=== PATIENT | male | born 1965 | race Caucasian/White ===

== ENCOUNTER 2023-10-20 17:16 | Emergency (ER) | payer OTHER, SELFPAY ==
[2023-10-20 17:21] VITALS: BP 131/81
[2023-10-20 18:06] LABS: % Basophils 0.4 % (0-2); % Eosinophils 0.4 % (0-6); % Immature Granulocytes 0.3 % (0-0.5); % Lymphocytes 16.8 % (20.5-51.1); % Monocytes 8.4 % (1.7-9.3); % Neutrophils 73.7 % (42.2-75.2); Absolute Lymphocytes 1.7 10^3/uL (1.2-3.4); Absolute Monocytes 0.9 10^3/uL (0.1-0.6); Absolute Neutrophils 7.4 10^3/uL (1.4-6.5); Hematocrit 37.5 % (39.0-52.0); Hemoglobin 13.9 g/dL (13.0-18.0); Mean Corp Hgb Conc. 37.1 g/dL (33.0-37.0); Mean Corpuscular Hgb 30.3 pg (27.0-31.0); Mean Corpuscular Volume 81.9 fL (80.0-94.0); Mean Platelet Volume 10.1 fL (7.4-10.4); Nucleated Red Blood Cells % 0 % (-); Platelet Count 164 10^3/uL (130-400); Red Blood Cell Count 4.58 10^6/uL (4.70-6.10); Red Cell Dist. Width 12.7 % (11.5-14.5); White Blood Cell Count 10.1 10^3/uL (4.8-10.8)
[2023-10-20 18:22] LABS: ALT (SGPT) 71 U/L (0-50); AST (SGOT) 34 U/L (17-59); Alkaline Phosphatase 93 U/L (38-126); Blood Urea Nitrogen 17 mg/dl (9-20); Calcium 9.7 mg/dl (8.4-10.2); Carbon Dioxide 26 mmol/L (22-30); Chloride 103 mmol/L (98-107); Glucose 180 mg/dl (70-99); Potassium 4.3 mmol/L (3.5-5.1); Sodium 134 mmol/L (135-145); Total Bilirubin 0.6 mg/dl (0.2-1.3); Total Protein 6.7 g/dl (6.3-8.2); eGFR > 60.00
[2023-10-20 18:42] LABS: Urine Albumin Trace (Neg - Trace); Urine Bilirubin Negative (Negative); Urine Character Clear (Clear); Urine Color Yellow; Urine Glucose 1+ (Negative); Urine Ketone Trace (Negative); Urine Leukocyte 1+ (Negative); Urine Nitrite Negative (Negative); Urine Occult Blood 1+ (Negative); Urine Specific Gravity 1.015 (<1.030); Urine Urobilinogen Negative (Neg - 1+)
[2023-10-20 19:05] LABS: Urine Bacteria Few (Negative)
[2023-10-20] MEDS: MORPHINE SULFATE 4 MG IV ×2 (19:38→21:39)
[2023-10-20 21:34] VITALS: BP 130/81
--- NOTE | 2023-10-20 23:20 | ED.GENMED ---
History of Present Illness
General
Chief Complaint: Male Genito-Urinary Symptoms
Source: patient and family
Time Seen by Provider: 10/20/23 18:09
Travel History
Have you had any contact with someone who has COVID-19?: No
Do you have any symptoms of coronavirus? Fever > 100 degrees, chills, cough, shortness of breath, sore throat, loss of taste or smell, muscle aches, or headache?: No
History of Present Illness
History of Present Illness:
58-year-old male who presents with right testicular pain and swelling. Patient was seen for hematuria several days ago was put on some antibiotics. He has been on a cephalosporin. He states that over the last 24 hours has developed significant
right testicular pain no real abdominal pain. No trauma.
Past History
Past History
ED Past Medical History: NIDDM
Social History
Tobacco: Non-smoker
Phy Exam
Physical Exam
Physical Exam:
CONSTITUTIONAL Vital signs reviewed, Patient alert and oriented to person, place and time. Well-appearing
HEAD atraumatic, normocephalic.
EYES eyelids normal to inspection, Extraocular muscles intact, Conjunctiva normal, Sclera normal.
NECK normal range of motion, Trachea midline, no jugular venous distention.
RESP no respiratory distress
BACK No obvious deformities
Abdomen soft nontender, slight tenderness noted in the right groin region
penis normal. There is swelling and tenderness noted to the right testicle. There is no cellulitis that is encroaching the perineum to suspect Moshe's gangrene. There is no crepitus.
UPPER EXTREMITY Gross Range of motion normal, gross motor strength normal
LOWER EXTREMITY Gross range of motion normal, Gross motor strength normal
NEURO Speech normal, No focal motor deficits include, [place] coma scale 15, Memory normal, Cranial Nerves intact to screening exam.
SKIN Skin warm, dry, and normal in color.
PSYCHIATRIC Patient oriented to person place and time, Normal affect.
Course
Orders/Labs/Results
Orders:
Orders
10/20/23 18:01
Complete Blood Count/With Diff Urgent
Comprehensive Metabolic Panel Urgent
Urinalysis Reflex To Culture Urgent
Date Specimen was Collected: 10/20/23
Time Specimen was Collected: 17:53
Urine Microscopic Reflex Cult Urgent
Urine Culture Urgent
DEVON Source: U
Specimen Description:
Date Specimen was Collected: 10/20/23
Time Specimen was Collected: 17:53
10/20/23 19:26
Morphine Sulfate 4 mg IV NOW STA
Scrotum US [US Scrotum] Urgent
Comment:
Reason For Exam: R testicular pain
10/20/23 21:35
Morphine Sulfate 4 mg .ROUTE .STK-MED ONE
Morphine Sulfate 4 mg IV NOW STA
10/20/23 23:19
Hydrocodone 5/APAP 325 [[place] 5/325] 2 tablet PO NOW STA
LevoFLOXacin [Levaquin] 500 mg PO NOW STA
Abnormal Lab Results
10/20/23
18:01
RBC 4.58 L 10^6/uL
(4.70-6.10)
Hct 37.5 L %
(39.0-52.0)
MCHC 37.1 H g/dL
(33.0-37.0)
Absolute Neuts (auto) 7.4 H 10^3/uL
(1.4-6.5)
Absolute Monos (auto) 0.9 H 10^3/uL
(0.1-0.6)
Lymphocytes % 16.8 L %
(20.5-51.1)
Sodium 134 L mmol/L
(135-145)
Glucose 180 H mg/dl
(70-99)
ALT 71 H U/L
(0-50)
Urine Ketones Trace A
(Negative)
Ur Occult Blood Reflex 1+ A
(Negative)
Leukocyte Esterase Rfl 1+ A
(Negative)
Urine RBC 3-6 A /HPF
(0-2)
Urine WBC (Reflex) 11-15 A /HPF
(0-5)
Urine Bacteria (Reflex) Few A
(Negative)
Urine Glucose 1+ A
(Negative)
10/20/23 18:01
10/20/23 18:01
Vital Signs
Initial and Last Documented VS:
Initial Vital Signs
Temp Pulse Resp BP Pulse Ox
99.7 F 102 18 131/81 96
10/20/23 17:21 10/20/23 17:21 10/20/23 17:21 10/20/23 17:21 10/20/23 17:21
Last Documented Vital Signs
Temp Pulse Resp BP Pulse Ox
99.7 F 93 18 130/81 97
10/20/23 17:21 10/20/23 21:34 10/20/23 21:34 10/20/23 21:34 10/20/23 21:34
MDM/Problems Addressed
MDM/Problems Addressed:
Epididymitis, orchitis
*Radiology
Radiology exam reviewed: radiology read reviewed
*Pulse Oximetry
Patient hypoxic: no
*Critical Care Note
Total Time (30-74mins, 75-104mins- exclusive of procedures): Not Applicable
Data Reviewed
Source: patient and family
Further Testing Considered But Not Given:
Consider CT of the abdomen but the pain is clearly at the right scrotum
Patient Management
Escalation/DeEscalation of care consider admission/obs:
Considered admission but patient does feel a bit better and it is localized to orchitis and epididymitis. There is no evidence of Moshe's gangrene. His blood sugar is relatively well-controlled. Trial Levaquin and outpatient close follow-up
but return strictly if any symptoms seem to worsen at all. Patient and son agree
ED Attending Note
-
Portions of this chart may have been created with voice recognition software.� Occasional wrong word or��sound alike� substitutions may have occurred due to the inherent limitations of voice recognition software.
Discharge Plan
Departure
Patient Disposition: Home (Routine Discharge)
Date of Disposition: 10/20/23
Time of Disposition: 23:20
Patient with high blood pressure during this ER visit?: No
Discharge Problem:
Epididymo-orchitis
Instructions: Epididymitis and Orchitis
Prescriptions:
New
levofloxacin 500 mg tablet
500 mg PO DAILY 10 Days Qty: 10 0RF
hydrocodone-acetaminophen 5-325 mg tablet
2 tab PO Q6H PRN (Reason: Pain) Qty: 14 0RF
Referrals:
Alyce Cooper MD [Family Provider] -
Sy Mccormack MD [Active] -
Activity Restrictions/Additional Instructions:
Please use Naprosyn 500 mg every 12 hours as discussed. Please see urology in the next 3 to 5 days for follow-up and reevaluation. Please use tight fitting underwear for scrotal support. Please stop your current antibiotic and switch to Levaquin
as prescribed. Return immediately for fevers, worsening pain, increased swelling or any other concerns
Interventions
Interventions:
*Risk Screen - Suicide Last Done: 10/20/23 23:32
*General Assessment Last Done: 10/20/23 17:21
*Neglect/Abuse Screening Last Done: 10/20/23 23:32
ED- Fall Risk Assessment Last Done: 10/20/23 23:32
*ED COVID-19 Vaccine History Last Done: 10/20/23 17:21
*Nursing Disposition Last Done: 10/20/23 23:32
ED-Male Genitourinary Assessment Last Done: 10/20/23 18:03
Discharge Date and Time
Discharge Date/Time: 10/20/23 23:33
Print Language: MALTESE
[2023-10-20] MEDS: NORCO 5/325 2 TABLET PO (23:27)
[2023-10-20] MEDS: LEVAQUIN 500 MG PO (23:27)
== END 2023-10-20 23:33 | disposition home or self-care (01) ==
LOC: EMR 17:16
PROVIDERS: EMERGENCY PHYSICIAN Emergency Medicine; FAMILY PHYSICIAN Internal Medicine
DX: N45.3 Epididymo-orchitis (principal)
CPT/HCPCS: 99284; 96374; 96376; 76870; 80053; 81003; 81015; 85025; 87086; 93976